=== PATIENT | male | born 1985 | race American Indian/Alaskan Native ===

== ENCOUNTER 2021-06-01 13:09 | Emergency (ER) | payer SELFPAY ==
[2021-06-01] MEDS ORDERED: levETIRAcetam 1000 MG/NS 0.75% 1,000 MG/100 ML BAG IV ONE (13:42)
[2021-06-01 13:44] VITALS: BP 115/73
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
== END 2021-06-01 15:05 | disposition home or self-care (01) ==
LOC: ED 13:09
DX: G40.909 Epilepsy, unspecified, not intractable, without status epilepticus (principal)
CPT/HCPCS: 99282; J1953

== ENCOUNTER 2021-08-03 17:32 | Emergency (ER) | payer SELFPAY ==
[2021-08-03 21:09] VITALS: BP 149/81
[2021-08-03] MEDS ORDERED: LIDOCAINE-MPF (1%) 10 MG/1 ML VIAL 5 ML INFILTRATI ONE (23:24)
[2021-08-03] MEDS ORDERED: DOXYCYCLINE 100 MG CAP PO ONE (23:24)
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
== END 2021-08-03 23:50 | disposition home or self-care (01) ==
LOC: ED 17:32
DX: N34.2 Other urethritis (principal)
CPT/HCPCS: 96372; 99282; J0696; J3490

== ENCOUNTER 2021-10-12 12:42 | Emergency (ER) | payer BC ==
[2021-10-12] MEDS ORDERED: BUTALB/ACETAMINOPHEN/CAFFEINE TAB PO ONE (13:09)
[2021-10-12] MEDS ORDERED: LORazepam 2 MG/ML VIAL IV ONE (13:09)
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
[2021-10-12 14:18] LABS: Blood Urea Nitrogen 12 mg/dL (9-20); Calcium 9.2 mg/dL (8.4-10.2); Hemolysis Index 95
[2021-10-12 14:20] LABS: BUN/Creatinine Ratio 17
[2021-10-12 14:35] LABS: Basophils % (Auto) 0.5 % (0.0-1.8); Eosinophils # (Auto) 0.1 K/mm3 (0.0-0.4); Eosinophils % (Auto) 2.3 % (0.0-4.3); Hemoglobin 17.8 gm/dl (11.8-15.2); Lymphocytes # (Auto) 1.2 K/mm3 (1.2-5.4); Lymphocytes % (Auto) 36.2 % (13.4-35.0); Mean Corpuscular HGB Conc 34 % (32-34); Mean Corpuscular Volume 95 fl (84-94); Monocytes # (Auto) 0.3 K/mm3 (0.0-0.8); Monocytes % (Auto) 10.6 % (0.0-7.3); Platelet Count 155 K/mm3 (140-440); Red Blood Count 5.46 M/mm3 (3.65-5.03); Red Cell Distribution Width 13.5 % (13.2-15.2)
[2021-10-12 14:41] VITALS: BP 147/122
[2021-10-12] MEDS ORDERED: FOSPHENYTOIN 1,000 MG.PE in SODIUM CHLORIDE 0.9% 100 ML IV ONE (14:42)
[2021-10-12] MEDS ORDERED: PHENYTOIN 100 MG/4 ML ORAL.LIQD PO ONE ×2 (15:30→16:00)
== END 2021-10-12 15:39 | disposition home or self-care (01) ==
LOC: ED 12:42
DX: R56.9 Unspecified convulsions (principal); F17.210 Nicotine dependence, cigarettes, uncomplicated; Z79.899 Other long term (current) drug therapy
CPT/HCPCS: 36415; 80048; 80185; 83735; 85025; 96374; 99283; J2060; Q2009

== ENCOUNTER 2021-10-27 19:27 | Emergency (ER) | payer BC ==
[2021-10-27 23:19] LABS: Bilirubin,Urine NEG (Negative); Blood,Urine NEG (Negative); Color,Urine Yellow (Yellow); Hyaline Casts,Urine 3 /LPF; Mucus,Urine 3+ /HPF; Protein,Urine <15 mg/dL mg/dL (Negative)
[2021-10-28] MEDS ORDERED: LIDOCAINE-MPF (1%) 10 MG/1 ML VIAL 5 ML INFILTRATI ONE (01:40)
[2021-10-28] MEDS ORDERED: AZITHROMYCIN 250 MG TAB PO STA (01:40)
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
[2021-10-28 02:03] VITALS: BP 156/82
[2021-10-28 02:23] LABS: Basophils % (Auto) 0.6 % (0.0-1.8); Eosinophils # (Auto) 0.1 K/mm3 (0.0-0.4); Eosinophils % (Auto) 2.8 % (0.0-4.3); Hematocrit 49.5 % (35.5-45.6); Hemoglobin 16.3 gm/dl (11.8-15.2); Lymphocytes # (Auto) 1.8 K/mm3 (1.2-5.4); Lymphocytes % (Auto) 36.9 % (13.4-35.0); Mean Corpuscular HGB Conc 33 % (32-34); Mean Corpuscular Volume 97 fl (84-94); Monocytes # (Auto) 0.4 K/mm3 (0.0-0.8); Platelet Count 178 K/mm3 (140-440); Red Blood Count 5.08 M/mm3 (3.65-5.03); Red Cell Distribution Width 13.4 % (13.2-15.2)
[2021-10-28 02:30] LABS: BUN/Creatinine Ratio 10; Blood Urea Nitrogen 9 mg/dL (9-20); Calcium 8.4 mg/dL (8.4-10.2); Hemolysis Index 17
== END 2021-10-28 02:03 | disposition home or self-care (01) ==
LOC: ED 19:27
DX: R30.0 Dysuria (principal); Z20.2 Contact with and (suspected) exposure to infections with a predominantly sexual mode of transmission; F17.200 Nicotine dependence, unspecified, uncomplicated
CPT/HCPCS: 36415; 80048; 81001; 85025; 96372; 99283; J0696; J3490

== ENCOUNTER 2021-11-03 22:49 | Emergency (ER) | payer BC ==
[2021-11-03] MEDS ORDERED: PHENYTOIN 1,000 MG in SODIUM CHLORIDE 0.9% 250ML 250 ML IV ONE (23:38)
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
[2021-11-04 00:36] LABS: Alanine Aminotransferase 15 units/L (7-56); Albumin 4.5 g/dL (3.9-5); BUN/Creatinine Ratio 15; Blood Urea Nitrogen 15 mg/dL (9-20); Calcium 9.5 mg/dL (8.4-10.2); Hemolysis Index 28
[2021-11-04 01:00] LABS: Basophils % (Auto) 0.5 % (0.0-1.8); Eosinophils # (Auto) 0.1 K/mm3 (0.0-0.4); Eosinophils % (Auto) 1.6 % (0.0-4.3); Hematocrit 49.5 % (35.5-45.6); Lymphocytes % (Auto) 31.3 % (13.4-35.0); Mean Corpuscular HGB Conc 34 % (32-34); Mean Corpuscular Volume 95 fl (84-94); Monocytes # (Auto) 0.6 K/mm3 (0.0-0.8); Monocytes % (Auto) 8.8 % (0.0-7.3); Platelet Count 185 K/mm3 (140-440); Red Cell Distribution Width 13.5 % (13.2-15.2)
[2021-11-04 01:07] LABS: Bilirubin,Direct < 0.2 mg/dL (0-0.2)
[2021-11-04 01:12] LABS: Bilirubin,Urine NEG (Negative); Blood,Urine NEG (Negative); Color,Urine Yellow (Yellow); Mucus,Urine 3+ /HPF
[2021-11-04 03:02] VITALS: BP 121/89
--- NOTE | 2021-11-04 10:48 | Electrocardiograph Report ---
[facility] Test Date: 2021-11-03 Test Time: 23:25:28 Pat Name: MILLER ACOSTA Department: Room: Gender: M Mental Health Coordinator: LALA JONAS : 1985 Requested By: DORA BOSTON Order Number: [id number] Reading MD: Marilee Shen Measurements Intervals [place] Rate: 83 P: 59 WI: 169 QRS: 49 QRSD: 81 T: -1 QT: 344 QTc: 404 Interpretive Statements Sinus rhythm Left atrial enlargement No previous ECG available for comparison Electronically Signed On 11-04-2021 10:47:29 EDT by Marilee Shen
== END 2021-11-04 02:45 | disposition home or self-care (01) ==
LOC: ED 22:49
DX: G40.909 Epilepsy, unspecified, not intractable, without status epilepticus (principal); R36.9 Urethral discharge, unspecified; F17.200 Nicotine dependence, unspecified, uncomplicated
CPT/HCPCS: 36415; 70450; 80048; 80076; 80185; 81001; 85025; 93005; 96365; 99284; J0696; J1165; J7050

== ENCOUNTER 2021-11-05 18:28 | Emergency (ER) | payer BC ==
[2021-11-05 19:52] VITALS: BP 116/68
[2021-11-06] MEDS ORDERED: HYDROcodone/ACETAMINOPHEN 5-325 MG TAB PO STA (02:33)
--- NOTE | 2021-11-06 02:59 | XRay Report ---
LUMBAR SPINE 2 VIEWS INDICATION: Lower back pain. COMPARISON: No relevant prior imaging study available. FINDINGS: VERTEBRAE: No acute fracture. Normal alignment. DISC SPACES: No significant abnormality. FACET JOINTS: No significant abnormality. SOFT TISSUES: No acute findings. An IVC is seen with its apex located at the level of L2. ADDITIONAL FINDINGS: No additional significant findings. IMPRESSION: 1. No acute findings. Signer Name: David Worley MD Signed: 11/06/2021 2:55 AM Workstation Name: [id number]
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
== END 2021-11-06 04:36 | disposition home or self-care (01) ==
LOC: ED 18:28
DX: M54.50 Low back pain, unspecified (principal); V83.6XXA Passenger of special industrial vehicle injured in nontraffic accident, initial encounter; Y93.89 Activity, other specified; Y92.89 Other specified places as the place of occurrence of the external cause; Y99.8 Other external cause status
CPT/HCPCS: 72100; 99283

== ENCOUNTER 2021-11-15 07:39 | Emergency (ER) | payer SELFPAY ==
[2021-11-15 11:04] LABS: Bilirubin,Urine NEG (Negative); Blood,Urine NEG (Negative); Color,Urine Yellow (Yellow); Mucus,Urine FEW /HPF; Protein,Urine <15 mg/dL mg/dL (Negative); Urobilinogen,Urine < 2.0 mg/dL (<2.0)
[2021-11-15 11:43] LABS: Basophils % (Auto) 0.5 % (0.0-1.8); Eosinophils # (Auto) 0.1 K/mm3 (0.0-0.4); Hematocrit 50.8 % (35.5-45.6); Hemoglobin 16.9 gm/dl (11.8-15.2); Lymphocytes # (Auto) 1.5 K/mm3 (1.2-5.4); Lymphocytes % (Auto) 28.8 % (13.4-35.0); Mean Corpuscular HGB Conc 33 % (32-34); Mean Corpuscular Volume 96 fl (84-94); Monocytes # (Auto) 0.5 K/mm3 (0.0-0.8); Monocytes % (Auto) 9.7 % (0.0-7.3); Platelet Count 181 K/mm3 (140-440); Red Blood Count 5.32 M/mm3 (3.65-5.03); Red Cell Distribution Width 13.5 % (13.2-15.2)
[2021-11-15 12:01] LABS: Alanine Aminotransferase 17 units/L (7-56); Albumin 4.7 g/dL (3.9-5); BUN/Creatinine Ratio 19; Blood Urea Nitrogen 17 mg/dL (9-20); Calcium 9.7 mg/dL (8.4-10.2); Hemolysis Index 15
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
--- NOTE | 2021-11-15 12:16 | Cat Scan Report ---
CT ABDOMEN AND PELVIS WITHOUT CONTRAST HISTORY: Abdominal Pain COMPARISON: None. TECHNIQUE: Axial CT images were obtained through the abdomen and pelvis without IV contrast. Sagittal and coronal reformatted images. All CT scans at this location are performed using CT dose reduction for ALARA by means of automated exposure control. FINDINGS: CT ABDOMEN: Lung Bases: Clear. Liver: No significant abnormality. Biliary: No significant abnormality. Spleen: No significant abnormality. Unenlarged. Pancreas: No significant abnormality. Adrenals: No significant abnormality. Kidneys: No significant abnormality. Lymphatics: No lymphadenopathy. Vasculature: No significant abnormality. IVC filter is noted just below the renal veins. Bowel/Peritoneum: No significant abnormality. No free air. No free fluid. Normal appendix. CT PELVIS: : No significant abnormality. Osseous Structures: No significant abnormality. Additional Findings: None IMPRESSION: No significant abnormality identified. Signer Name: Kan Gutierres Jr, MD Signed: 11/15/2021 12:12 PM Workstation Name: [id number]
[2021-11-15 12:47] VITALS: BP 131/94
== END 2021-11-15 12:45 | disposition home or self-care (01) ==
LOC: ED 07:39
DX: A60.00 Herpesviral infection of urogenital system, unspecified (principal); R10.9 Unspecified abdominal pain; R56.9 Unspecified convulsions; F17.200 Nicotine dependence, unspecified, uncomplicated; Z79.899 Other long term (current) drug therapy
CPT/HCPCS: 36415; 74176; 80053; 81001; 82150; 83690; 85025; 99284

== ENCOUNTER 2021-11-20 12:00 | Emergency (ER) | payer SELFPAY ==
[2021-11-20] MEDS ORDERED: levETIRAcetam 500 MG TAB PO ONE (12:49)
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
[2021-11-20] MEDS ORDERED: IBUPROFEN 800 MG TAB PO ONE (12:55)
[2021-11-20] MEDS ORDERED: ACETAMINOPHEN 500 MG TAB PO ONE (12:57)
[2021-11-20] MEDS ORDERED: PHENYTOIN 1,000 MG in SODIUM CHLORIDE 0.9% 250ML 250 ML IV ONE (13:00)
[2021-11-20] MEDS ORDERED: LIDOCAINE-MPF (1%) 10 MG/1 ML VIAL 5 ML INFILTRATI ONE (13:06)
[2021-11-20] MEDS ORDERED: AZITHROMYCIN 250 MG TAB PO ONE (13:07)
[2021-11-20] MEDS ORDERED: ONDANSETRON 4 MG ODT TAB PO ONE (13:07)
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
[2021-11-20 16:51] VITALS: BP 127/87
== END 2021-11-20 16:00 | disposition home or self-care (01) ==
LOC: ED 12:00
DX: S09.90XA Unspecified injury of head, initial encounter (principal); G40.909 Epilepsy, unspecified, not intractable, without status epilepticus; N34.1 Nonspecific urethritis; X58.XXXA Exposure to other specified factors, initial encounter; Y93.89 Activity, other specified; Y92.89 Other specified places as the place of occurrence of the external cause; Y99.8 Other external cause status
CPT/HCPCS: 36415; 70450; 80185; 96365; 96372; 99284; J0696; J1165; J3490; J7050; Q0162

== ENCOUNTER 2022-01-05 03:51 | Emergency (ER) | payer SELFPAY ==
[2022-01-05 05:23] LABS: Bilirubin,Urine NEG (Negative); Blood,Urine NEG (Negative); Color,Urine Yellow (Yellow); Protein,Urine <15 mg/dL mg/dL (Negative)
[2022-01-05 05:26] LABS: Mucus,Urine 2+ /HPF
[2022-01-05] MEDS ORDERED: AZITHROMYCIN 250 MG TAB PO ONE (06:12)
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
[2022-01-05 12:13] VITALS: BP 111/78
== END 2022-01-05 14:10 | disposition home or self-care (01) ==
LOC: ED 03:51
DX: R30.0 Dysuria (principal); R56.9 Unspecified convulsions; Z98.890 Other specified postprocedural states; F17.290 Nicotine dependence, other tobacco product, uncomplicated
CPT/HCPCS: 81001; 96372; 99283; J0696

== ENCOUNTER 2022-02-17 19:04 | Emergency (ER) | payer SELFPAY ==
[2022-02-17] MEDS ORDERED: KETOROLAC 60 MG/2 ML INJ IM ONE (23:25)
[2022-02-17] MEDS ORDERED: diazePAM 5 MG TAB PO ONE (23:26)
[2022-02-17] MEDS ORDERED: predniSONE 20 MG TAB PO ONE (23:26)
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
[2022-02-18 01:11] VITALS: BP 123/56
== END 2022-02-18 01:12 | disposition home or self-care (01) ==
LOC: ED 19:04
DX: S39.012A Strain of muscle, fascia and tendon of lower back, initial encounter (principal); M62.830 Muscle spasm of back; X50.9XXA Other and unspecified overexertion or strenuous movements or postures, initial encounter; Y93.89 Activity, other specified; Y92.89 Other specified places as the place of occurrence of the external cause; Y99.8 Other external cause status
CPT/HCPCS: 96372; 99282; J1885

== ENCOUNTER 2022-02-28 04:00 | Emergency (ER) | payer SELFPAY ==
[2022-02-28] MEDS ORDERED: PHENYTOIN 1,000 MG in SODIUM CHLORIDE 0.9% 250ML 250 ML IV ONE (04:48)
[2022-02-28] MEDS ORDERED: SODIUM CHLORIDE 0.9% 1000 ML 1,000 ML IV ONE (04:48)
[2022-02-28 05:29] LABS: Basophils % (Auto) 0.5 % (0.0-1.8); Eosinophils # (Auto) 0.1 K/mm3 (0.0-0.4); Eosinophils % (Auto) 1.4 % (0.0-4.3); Hematocrit 44.8 % (35.5-45.6); Hemoglobin 15.2 gm/dl (11.8-15.2); Lymphocytes % (Auto) 41.5 % (13.4-35.0); Mean Corpuscular HGB Conc 34 % (32-34); Mean Corpuscular Volume 97 fl (84-94); Monocytes # (Auto) 0.4 K/mm3 (0.0-0.8); Monocytes % (Auto) 9.1 % (0.0-7.3); Platelet Count 138 K/mm3 (140-440)
--- NOTE | 2022-02-28 05:42 | XRay Report ---
CHEST 1 VIEW 02/28/2022 4:33 AM INDICATION / CLINICAL INFORMATION: Dyspnea. COMPARISON: None available. FINDINGS: SUPPORT DEVICES: None. HEART / MEDIASTINUM: No significant abnormality. LUNGS / PLEURA: No significant pulmonary or pleural abnormality. No pneumothorax. ADDITIONAL FINDINGS: No significant additional findings. IMPRESSION: 1. No acute findings. Signer Name: Wade Moon MD Signed: 02/28/2022 5:38 AM Workstation Name: [id number]
[2022-02-28 05:43] LABS: Alanine Aminotransferase 19 units/L (7-56); Albumin 4.2 g/dL (3.9-5); BUN/Creatinine Ratio 15; Blood Urea Nitrogen 12 mg/dL (9-20); Calcium 9.3 mg/dL (8.4-10.2); Hemolysis Index 9
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
[2022-02-28 06:25] VITALS: BP 100/61
== END 2022-02-28 06:25 | disposition home or self-care (01) ==
LOC: ED 04:00
DX: R56.9 Unspecified convulsions (principal); Z76.0 Encounter for issue of repeat prescription; F17.200 Nicotine dependence, unspecified, uncomplicated; F12.90 Cannabis use, unspecified, uncomplicated; Z79.899 Other long term (current) drug therapy
CPT/HCPCS: 36415; 71045; 80053; 80185; 85025; 96365; 99283; J1165; J7030; J7050

== ENCOUNTER 2022-03-19 05:28 | Emergency (ER) | payer SELFPAY ==
[2022-03-19 05:37] VITALS: BP 118/53
[2022-03-19] MEDS ORDERED: LIDOCAINE-MPF (1%) 10 MG/1 ML VIAL 5 ML INFILTRATI ONE (09:14)
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
[2022-03-19 10:01] LABS: Color,Urine Yellow (Yellow); Mucus,Urine 2+ /HPF; WBC,Urine < 1.0 /HPF (0.0-6.0)
== END 2022-03-19 09:44 | disposition home or self-care (01) ==
LOC: ED 05:28
DX: Z20.2 Contact with and (suspected) exposure to infections with a predominantly sexual mode of transmission (principal); R36.9 Urethral discharge, unspecified; F17.200 Nicotine dependence, unspecified, uncomplicated; F12.90 Cannabis use, unspecified, uncomplicated; Z79.899 Other long term (current) drug therapy
CPT/HCPCS: 81001; 96372; 99283; J0696; J3490